=== PATIENT | female | born 1990 | race Two or more races ===

== ENCOUNTER 2017-01-01 19:23 | Inpatient (IN) | payer OTHER ==
[2017-01-01] MEDS ORDERED: DEXTROSE 5%-LACTATED RINGERS 500 ML IV SCH (21:30)
[2017-01-01] MEDS ORDERED: DEXTROSE 5%-LACTATED RINGERS 250 ML IV SCH (22:30)
[2017-01-01] MEDS ORDERED: DEXTROSE 5%-LACTATED RINGERS 1,000 ML IV SCH (23:30)
[2017-01-02 00:26] LABS: BASO % 0.2 % (0-2.0); EOS % 1.8 % (0-4.5); HEMATOCRIT 31.9 % (32.4-45.2); HEMOGLOBIN 10.9 GM/dL (10.7-15.3); LYMPH % 19.4 % (8-40); MCH 30.1 pg (25.7-33.7); MCHC 34.1 g/dl (32.0-36.0); MEAN CELL VOLUME 88.2 fl (80-96); MEAN PLT VOLUME 9.1 fl (7.5-11.1); MONO % 10.5 % (3.8-10.2); NEUT % 68.1 % (42.8-82.8); PLATELET COUNT 161 K/MM3 (134-434); RBC 3.61 M/mm3 (3.60-5.2); RDW 14.4 % (11.6-15.6); WHITE BLOOD COUNT 8.1 K/mm3 (4.0-10.0)
[2017-01-02 00:39] LABS: INR 0.91 (0.82-1.09); PROTHROMBIN TIME (PATIENT) 10.3 SEC (9.98-11.88)
[2017-01-02 00:41] LABS: ACTIVATED PTT 25.4 SECONDS (26.9-34.4)
[2017-01-02 00:48] LABS: ANION GAP 12 (8-16); BLOOD UREA NITROGEN 6 mg/dL (7-18); CALCIUM 8.5 mg/dL (8.5-10.1); CHLORIDE 107 mmol/L (98-107); CO2 22 mmol/L (21-32); CREATININE 0.5 mg/dL (0.55-1.02); GLUCOSE,RANDOM 90 mg/dL (74-106); POTASSIUM 3.6 mmol/L (3.5-5.1); SODIUM 141 mmol/L (136-145)
[2017-01-02 01:23] VITALS: BMI 25.9
[2017-01-02 03:30] LABS: URINE AMPHETAMINES NEGATIVE ng/ml (CUTOFF=500); URINE BARBITURATES NEGATIVE ng/ml (CUTOFF=200); URINE BENZODIAZEPINES NEGATIVE ng/ml (CUTOFF=200)
[2017-01-02 03:31] LABS: METHADONE, UR NEGATIVE ng/ml (CUTOFF=300); OPIATES, URI NEGATIVE ng/ml (CUTOFF=300); PHENCYCLIDINE,URINE NEGATIVE ng/ml (CUTOFF=25)
[2017-01-02 03:45] LABS: COCAINE, UR NEGATIVE ng/ml (CUTOFF=300)
[2017-01-02] MEDS ORDERED: PROMETHAZINE HCL 25 MG/1 ML VIAL IVPUSH ONE (04:03)
[2017-01-02] MEDS ORDERED: BUTORPHANOL TARTRATE 1 MG/ML VIAL IVPB ONE (04:03)
--- NOTE | 2017-01-02 04:07 | HP ---
Past Medical History - Admission Chief Complaint: Here because "it is my due date" History Source: Patient Limitations to Obtaining History: Other (language barrier, no chart available from provider) - Past Medical History Cardiovascular: No: HTN Pulmonary: No: Asthma Reproductive: No: Ectopic ...: 3 ...Para: 2 ...Term: 2 ... Weeks Gestation by Dates: 41.1 ...EDC by Dates: 12/23/16 Psych: No: Bipolar Endocrine: No: Diabetes Mellitus - Past Surgical History Past Surgical History: Yes: None Hx Myomectomy: No Hx Transabdominal Cerclage: No - Smoking History Smoking history: Never smoked - Alcohol/Substance Use Hx Alcohol Use: No - Social History ADL: Independent Home Medications - Allergies Allergies/Adverse Reactions: Allergies Allergy/AdvReac Type Severity Reaction Status Date / Time Penicillins Allergy Mild Hives Verified 01/01/17 20:33 - Home Medications Home Medications: Ambulatory Orders Vit Calc,Iron,Folic [ Vitamins] 1 each PO DAILY 01/01/17 Review of Systems - Review of Systems Constitutional: reports: No Symptoms Eyes: reports: No Symptoms Neck: reports: No Symptoms Cardiovascular: reports: No Symptoms Gastrointestinal: reports: No Symptoms Integumentary: reports: No Symptoms Neurological: reports: No Symptoms Physical Exam - Maternity Vital Signs: Vital Signs Temperature 97.8 F 01/02/17 02:00 Pulse Rate 82 01/02/17 03:00 Respiratory Rate 20 01/02/17 03:00 Blood Pressure 100/65 01/02/17 03:00 O2 Sat by Pulse Oximetry (%) Constitutional: Yes: Well Nourished, No Distress, Calm Eyes: Yes: Conjunctiva Clear, EOM Intact HENT: Yes: Atraumatic, Normocephalic Neck: Yes: Supple Breast(s): Yes: WNL - Abdominal Exam/OB Number of Fetuses: Single Presentation: Vertex Contractions: Yes Regularity: Irregular Heart Rate (range): 135 Category: I Accelerations: Uniform Decelerations: None - Vaginal Exam/OB Dilatation (cm): 6 Effacement (%): 60 Amniotic Membrane Status: Intact Presentation: Vertex/Position Station: -2 - Physical Exam Psychiatric: Yes: Alert, Oriented - Labs Lab Results: CBC, BMP 01/01/17 23:15 01/01/17 23:15 Hemorrhage Risk Assessment - Risk Factors Medium Risk Factors: Yes: None High Risk Factors: Yes: None Risk Score: 1 Risk Level: Medium Risk Imaging - Results Ultrasound: Report Reviewed, Image Reviewed Problem List - Problems (1) Term Code(s): Z34.80 - ENCOUNTER FOR SUPRVSN OF NORMAL , UNSP TRIMESTER Assessment/Plan 26 y/o with SIUP at term (EDC unknown 2/2 no chart available) in labor - FHTS cat 1 - admitted to L&D, continuous monitoring, expectant management - GBS unknown but > 37 weeks, no antibiotic ppx needed - routine care
[2017-01-02] MEDS ORDERED: DEXTROSE 5%-LACTATED RINGERS 1,000 ML IV SCH (04:15)
[2017-01-02] MEDS: OXYTOCIN 20 UNITS in 0.9% NS 20 UNIT/1,000 ML INFUS.BAG IV SCH ×2 (11:10→14:00)
[2017-01-02] MEDS ORDERED: BENZOCAINE 20% 57 GM BOTTLE TP PRN (11:19)
[2017-01-02] MEDS ORDERED: METHYLERGONOVINE MALEATE 0.2 MG/1 ML AMP IM PRN (11:19)
[2017-01-02] MEDS ORDERED: BENZOCAINE 28 GM HEMORRHOIDAL OINTMENT TP PRN (11:19)
[2017-01-02] MEDS ORDERED: WITCH HAZEL 50% (TUCKS) 40 PAD/JAR PAD TP PRN (11:19)
[2017-01-02] MEDS ORDERED: BISACODYL 10 MG SUPP.RECT RC PRN (11:19)
--- NOTE | 2017-01-02 11:23 | PN ---
Delivery - Delivery Vaginal Delivery: Spontaneous Type of Anesthesia: Local Episiotomy/Laceration: 2nd degree EBL (cc): 250 Delivery, Single - Feeding Plan Initial Plan: Elected not to breastfeed exclusively throughout hospitalization Remarks - Remarks Remarks: Normal spontaneous vaginal delivery of a live infant boy over second degree laceration. Nose / Oropharynx suctioned @ perineum. Nuchal cord x 1 released,clamped and cut. Placenta expelled spontaneously intact. Laceration repeaired with 2.0 Chromic and 2.0 Biosyn.
[2017-01-02] MEDS: IBUPROFEN 600 MG TABLET (FP) PO PRN ×2 (12:15→16:01)
[2017-01-02] MEDS ORDERED: TUBERCULIN PPD 5 TU/0.1ML SYRINGE (IN PATIENT USE ONLY) ID ONE (12:15)
[2017-01-02] MEDS: FERROUS SO4 325 MG TABLET (FP) PO SCH ×2 (15:44→17:53)
[2017-01-02] MEDS: ACETAMINOPHEN 325 MG TABLET (FP) PO PRN (16:01)
[2017-01-03] MEDS: ACETAMINOPHEN 325 MG TABLET (FP) PO PRN (05:47)
[2017-01-03] MEDS: IBUPROFEN 600 MG TABLET (FP) PO PRN (05:49)
[2017-01-03 07:02] LABS: BASO % 0.3 % (0-2.0); EOS % 2.1 % (0-4.5); HEMATOCRIT 34.7 % (32.4-45.2); HEMOGLOBIN 11.6 GM/dL (10.7-15.3); LYMPH % 14.8 % (8-40); MCH 29.7 pg (25.7-33.7); MCHC 33.4 g/dl (32.0-36.0); MEAN CELL VOLUME 88.8 fl (80-96); MEAN PLT VOLUME 8.3 fl (7.5-11.1); MONO % 8.2 % (3.8-10.2); NEUT % 74.6 % (42.8-82.8); PLATELET COUNT 140 K/MM3 (134-434); RBC 3.91 M/mm3 (3.60-5.2); RDW 14.7 % (11.6-15.6)
[2017-01-03] MEDS: PRENATAL VITAMINS W/ FOLIC ACID TABLET (FP) PO SCH (09:01)
[2017-01-03] MEDS: FERROUS SO4 325 MG TABLET (FP) PO SCH ×3 (09:01→16:57)
--- NOTE | 2017-01-03 09:18 | PN ---
Post Progress Note - Subjective Subjective: 26 yo Para 3 status post vaginal delivery seen and evaluated. Doing well, no complaints. Post Day: 1 Type of Delivery: Vital Signs: Vital Signs Temperature 98.1 F 01/03/17 07:15 Pulse Rate 58 L 01/03/17 07:15 Respiratory Rate 18 01/03/17 07:15 Blood Pressure 117/80 01/03/17 07:15 O2 Sat by Pulse Oximetry (%) Breast Exam: Yes: Soft Uterus: Yes: Fundus Firm Abdomen/GI: Yes: Abdomen soft, Tolerating PO Lochia: Yes: Rubra Lochia, amount: Moderate Extremities: Yes: Calves non-tender Perineum: Yes: Intact Activity: Ambulating - Labs Labs: CBC WBC 12.0 K/mm3 (4.0-10.0) H D 01/03/17 06:00 RBC 3.91 M/mm3 (3.60-5.2) 01/03/17 06:00 Hgb 11.6 GM/dL (10.7-15.3) 01/03/17 06:00 Hct 34.7 % (32.4-45.2) 01/03/17 06:00 MCV 88.8 fl (80-96) 01/03/17 06:00 MCH 29.7 pg (25.7-33.7) 01/03/17 06:00 MCHC 33.4 g/dl (32.0-36.0) 01/03/17 06:00 RDW 14.7 % (11.6-15.6) 01/03/17 06:00 Plt Count 140 K/MM3 (134-434) 01/03/17 06:00 MPV 8.3 fl (7.5-11.1) 01/03/17 06:00 Neutrophils % 74.6 % (42.8-82.8) 01/03/17 06:00 Lymphocytes % 14.8 % (8-40) D 01/03/17 06:00 Monocytes % 8.2 % (3.8-10.2) 01/03/17 06:00 Eosinophils % 2.1 % (0-4.5) 01/03/17 06:00 Basophils % 0.3 % (0-2.0) 01/03/17 06:00 Assessment/Plan Status post vaginal delivery Stable Continue routine care
--- NOTE | 2017-01-03 09:20 | DS ---
Physical Exam-[employer] Vital Signs: Vital Signs Temperature 98.1 F 01/03/17 07:15 Pulse Rate 58 L 01/03/17 07:15 Respiratory Rate 18 01/03/17 07:15 Blood Pressure 117/80 01/03/17 07:15 O2 Sat by Pulse Oximetry (%) Constitutional: Yes: Well Nourished Eyes: Yes: Conjunctiva Clear HENT: Yes: Atraumatic Neck: Yes: Supple, Trachea Midline Cardiovascular: Yes: Regular Rate and Rhythm Respiratory: Yes: Regular, CTA Bilaterally Gastrointestinal: Yes: Normal Bowel Sounds External Genitalia: Yes: Normal Vaginal Exam: Yes: Normal Cervix: Yes: Normal Uterus: Yes: Firm ....Post : Yes: Uterus firm, Moderate lochia serosa Breast(s): Yes: WNL Extremities: Yes: WNL Neurological: Yes: Alert, Oriented ...Motor Strength: WNL Psychiatric: Yes: Alert, Oriented Labs: CBC, BMP 01/03/17 06:00 01/01/17 23:15 Delivery - Delivery Vaginal Delivery: Spontaneous Type of Anesthesia: Local Episiotomy/Laceration: Perineal Extension/lac, 2nd degree EBL (cc): 250 Delivery, Single - Stages of Labor Date 1st Stage Initiatied: 01/02/17 Time 1st Stage Initiated: 01:00 Date 2nd Stage Initiated: 01/02/17 Time 2nd Stage Initiated: 10:50 Date of Delivery: 01/02/17 Time of Delivery: 11:03 Time Placenta Delivered: 11:07 - Condition of Infant 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 F/U with MD in 6 weeks Referrals: Erika Martinez MD [Staff Physician] - Disposition: HOME - Home Medications Comprehensive Discharge Medication List: Ambulatory Orders Vit Calc,Iron,Folic [ Vitamins] 1 each PO DAILY 01/01/17
[2017-01-03] MEDS ORDERED: SENNOSIDES/DOCUSATE COMBO (SENNA PLUS) TABLET (UD) PO PRN (22:00)
[2017-01-04 09:01] VITALS: BP 114/73; PULSE 67; TEMP 98.8
[2017-01-04] MEDS: PRENATAL VITAMINS W/ FOLIC ACID TABLET (FP) PO SCH (09:10)
[2017-01-04] MEDS: FERROUS SO4 325 MG TABLET (FP) PO SCH ×2 (09:10→12:17)
== END 2017-01-04 12:10 | disposition home or self-care (01) | DRG 560 ==
LOC: JDEL 19:23 → JLDR 22:20 → J3W 01-02 12:34
PROVIDERS: ADMIT Obstetrics & Gynecology; ATTEND Obstetrics & Gynecology
PROC: 10E0XZZ Delivery of Products of Conception, External Approach (ICD-10-PCS; principal; 2017-01-02)
PROC: 0KQM0ZZ Repair Perineum Muscle, Open Approach (ICD-10-PCS; 2017-01-02)
DX: O48.0 Post-term pregnancy (principal); O70.1 Second degree perineal laceration during delivery; O69.81X0 Labor and delivery complicated by cord around neck, without compression, not applicable or unspecified; Z3A.41 41 weeks gestation of pregnancy; Z37.0 Single live birth
CPT/HCPCS: 36415; 59025; 71020-TC; 76801-TC; 76819-TC; 80048; 80307; 85025; 85461; 85610; 85730; 86593; 86850; 86900; 86901; 86999; 87389

== ENCOUNTER 2017-02-01 01:36 | Emergency (ER) | payer OTHER ==
[2017-02-01 01:47] VITALS: BMI 25.9
--- NOTE | 2017-02-01 02:12 | PDOC ---
History of Present Illness - General History Source: Patient Exam Limitations: No Limitations - History of Present Illness Initial Comments: 02/01/17 04:02 Patient is a 26 year old female with a significant past medical history of who presents to the ED with complaints of headache that began 1 month ago. Patient reports experiencing intense headache shortly after giving to her child 1 month ago. She reports taking motrin for headache with slight relief. Patient also reports experiencing intense left lower tooth pain for one week. She reports being unable to chew and open mouth effectively secondary to tooth pain. Denies chest pain, SOB. Denies nausea, vomiting. Denies chills. Denies contact with sick individuals, out of state travel. Denies lightheadedness, dizziness, blurred vision. Allergies: Eggs, Fish, Penicillin. Social history: Vaginal 1 month ago. No smoking. No alcohol. No illicit drugs. Surgical history: None PMD: Dr. Jang. <Stephen Long - Last Filed: 02/01/17 04:01> <Shantal Gore - Last Filed: 02/01/17 22:52> - General Chief Complaint: Headache Stated Complaint: HEADACHE Time Seen by Provider: 02/01/17 02:08 Past History <Stephen Long - Last Filed: 02/01/17 04:01> - Past Medical History Asthma: No Cancer: No Cardiac Disorders: No Diabetes: No HTN: No Seizures: No Thyroid Disease: No - Suicide/Smoking/Psychosocial Hx Smoking History: Never smoked Have you smoked in the past 12 months: No Information on smoking cessation initiated: No Hx Alcohol Use: No Drug/Substance Use Hx: No Hx Substance Use Treatment: No <Shantal Gore - Last Filed: 02/01/17 22:52> - Past Medical History Allergies/Adverse Reactions: Allergies Allergy/AdvReac Type Severity Reaction Status Date / Time egg Allergy Mild Rash Verified 02/01/17 01:45 Fish Containing Products Allergy Mild Rash Verified 02/01/17 01:45 Penicillins Allergy Mild Hives Verified 02/01/17 01:45 Home Medications: Ambulatory Orders NK [No Known Home Medication] 02/01/17 Review of Systems - Review of Systems Able to Perform ROS?: Yes Comments:: 02/01/17 04:02 GENERAL/CONSTITUTIONAL: No fever or chills. No weakness. HEAD, EYES, EARS, NOSE AND THROAT: +Toothache. No change in vision. No ear pain or discharge. No sore throat. CARDIOVASCULAR: No chest pain or shortness of breath. RESPIRATORY: No cough, wheezing, or hemoptysis. GASTROINTESTINAL: No nausea, vomiting, diarrhea or constipation. GENITOURINARY: No dysuria, frequency, or change in urination. MUSCULOSKELETAL: No joint or muscle swelling or pain. No neck or back pain. SKIN: No rash NEUROLOGIC: +Headache No vertigo, loss of consciousness, or change in strength/sensation. ENDOCRINE: No increased thirst. No abnormal weight change. HEMATOLOGIC/LYMPHATIC: No anemia, easy bleeding, or history of blood clots. ALLERGIC/IMMUNOLOGIC: No hives or skin allergy. All Other Systems: Reviewed and Negative <Stephen Long - Last Filed: 02/01/17 04:01> *Physical Exam - Vital Signs Last Vital Signs Temp Pulse Resp BP Pulse Ox 99.1 F 87 20 120/64 100 02/01/17 01:38 02/01/17 01:38 02/01/17 01:38 02/01/17 01:38 02/01/17 01:38 - Physical Exam Comments: 02/01/17 04:02 GENERAL: Awake, alert, and fully oriented, in no acute distress HEAD: No signs of trauma EYES: PERRLA, EOMI, sclera anicteric, conjunctiva clear ENT: Auricles normal inspection, hearing grossly normal, nares patent, oropharynx clear without exudates. Moist mucosa NECK: Normal ROM, supple, no lymphadenopathy, JVD, or masses LUNGS: Breath sounds equal, clear to auscultation bilaterally. No wheezes, and no crackles HEART: Regular rate and rhythm, normal S1 and S2, no murmurs, rubs or gallops ABDOMEN: Soft, nontender, normoactive bowel sounds. No guarding, no rebound. No masses EXTREMITIES: Normal range of motion, no edema. No clubbing or cyanosis. No cords, erythema, or tenderness NEUROLOGICAL: Cranial nerves II through XII grossly intact. Normal speech, normal gait SKIN: Warm, Dry, normal turgor, no rashes or lesions noted. <Stephen Long - Last Filed: 02/01/17 04:01> - Vital Signs Last Vital Signs Temp Pulse Resp BP Pulse Ox 99.1 F 87 20 120/64 100 02/01/17 01:38 02/01/17 01:38 02/01/17 01:38 02/01/17 01:38 02/01/17 01:38 <Shantal Gore - Last Filed: 02/01/17 22:52> Medical Decision Making - Medical Decision Making 02/01/17 06:55 Pt complains of headache and "uterus pain" She has no vag bleed and no discharge. She gave 1 month ago. She has no abd pain and she has no dysuria and no flank pain. She has a MOURA, but no fever and no neuro symptoms. She has no sore throat. HEENT is normal, but reveals a left lower wisdom tooth erupting and causing pain x 1 week. MOURA is likely due to the tooth. However, pt insists that the pain has been since the delivery of her baby. Head CT done; result pending. 02/01/17 06:58 Pt will be signed out to the day team <Shantal Gore - Last Filed: 02/01/17 22:52> *DC/Admit/Observation/Transfer - Attestations Scribe Attestion: 02/01/17 04:02 Documentation prepared by Stephen Long, acting as medical planner for Shantal Gore MD/DO. <Stephen Long - Last Filed: 02/01/17 04:01> <Shantal Gore - Last Filed: 02/01/17 22:52> Diagnosis at time of Disposition: Headache - Discharge Dispostion Disposition: HOME Condition at time of disposition: Stable - Referrals Referrals: Berta Jang MD [Primary Care Provider] - - Patient Instructions Printed Discharge Instructions: DI for Headache Additional Instructions: Follow-up with Dr. Jang within 2-3 days. Return to the emergency department if you have any new, worsening or concerning symptoms. Print Language: [place] - Post Discharge Activity
[2017-02-01] MEDS ORDERED: ACETAMINOPHEN 500 MG TABLET (FP) PO ONE (03:41)
[2017-02-01] MEDS ORDERED: ACETAMINOPHEN 325 MG TABLET (FP) ONE (03:59)
[2017-02-01 04:03] LABS: URINE APPEARANCE CLEAR; URINE BILIRUBIN NEGATIVE (NEGATIVE); URINE BLOOD NEGATIVE (NEGATIVE); URINE COLOR STRAW; URINE GLUCOSE (UA) NEGATIVE (NEGATIVE); URINE KETONE NEGATIVE (NEGATIVE); URINE NITRITE NEGATIVE (NEGATIVE); URINE PROTEIN NEGATIVE (NEGATIVE); URINE UROBILINOGEN NEGATIVE mg/dL (0.2-1.0)
[2017-02-01 04:42] LABS: URINE LEUK ESTERASE 2+ (NEGATIVE)
[2017-02-01 04:47] LABS: URINE BACTERIA RARE /hpf (NONE SEEN); URINE RBC <1 /hpf (0-3); URINE WBC 12 /hpf (3-5)
--- NOTE | 2017-02-01 07:42 | PDOC ---
*Physical Exam - Vital Signs Last Vital Signs Temp Pulse Resp BP Pulse Ox 99.1 F 63 18 109/73 100 02/01/17 01:38 02/01/17 06:50 02/01/17 06:50 02/01/17 06:50 02/01/17 06:50 ED Treatment Course - ADDITIONAL ORDERS Additional order review: Laboratory Results 02/01/17 03:50 Urine Color Straw Urine Appearance Clear Urine pH 7.0 Ur Specific [place] 1.004 Urine Protein Negative Urine Glucose (UA) Negative Urine Ketones Negative Urine Blood Negative Urine Nitrite Negative Urine Bilirubin Negative Urine Urobilinogen Negative Urine WBC (Auto) 12 Urine RBC (Auto) <1 Ur Epithelial Cells Rare Urine Bacteria Rare - Medications Given in the ED: ED Medications Discontinued Medications Generic Name Dose Route Start Last Admin Trade Name Yohannes PRN Reason Stop Dose Admin Acetaminophen 1,000 mg 02/01/17 03:41 02/01/17 04:02 Tylenol - PO 02/01/17 03:42 1,000 mg ONCE ONE Administration Medical Decision Making - Medical Decision Making 02/01/17 07:37 Patient signed out to me by Dr. Gore, pending [facility]. She presents with a gradual onset headache that began 1 month ago. She reports the headache is. And has no association with the time of day. She denies any associated symptoms of focal weakness or numbness or photophobia. Reports some nausea but no vomiting. Denies neck stiffness. Current vitals are wnl, BP 106/76. GENERAL: Awake, alert, and fully oriented, in no acute distress HEAD: No signs of trauma EYES: PERRLA, EOMI, sclera anicteric, conjunctiva clear ENT: Auricles normal inspection, hearing grossly normal, nares patent, oropharynx clear without exudates. Moist mucosa NECK: Normal ROM, supple, no lymphadenopathy, JVD, or masses LUNGS: Breath sounds equal, clear to auscultation bilaterally. No wheezes, and no crackles HEART: Regular rate and rhythm, normal S1 and S2, no murmurs, rubs or gallops ABDOMEN: Soft, nontender, normoactive bowel sounds. No guarding, no rebound. No masses EXTREMITIES: Normal range of motion, no edema. No clubbing or cyanosis. No cords, erythema, or tenderness NEUROLOGICAL: Normal speech, cranial nerves intact, negative pronator drift, 5/ 5 strength in all 4 extremities, normal sensation to light touch in all 4 extremities, normal cerebellar exam, normal gait, normal reflexes and tone SKIN: Warm, Dry, normal turgor, no rashes or lesions noted. Likely a tension headahce or possibly related to her toothache. Pt is neuro intact with no concerning symptoms of pre-eclampsia/eclampsia, sinus will thrombosis, or SAH. Pt reports that currently after treatment, her headache has completely resolved and she wishes to go home. We are awaiting the results of the CT scan that was ordered overnight, I informed the patient and her brother that we are waiting for the results. They expressed understanding. 02/01/17 07:42 CTH negative. Pt informed, requests DC to f/u with PMD. I discussed the physical exam findings, ancillary test results and final diagnoses with the patient. I answered all of the patient's questions. The patient was satisfied with the care received and felt comfortable with the discharge plan and treatment plan. The patient will call their primary care physician within 24 hours to arrange follow-up and will return to the Emergency Department with any new, persistent or worsening symptoms. *DC/Admit/Observation/Transfer Diagnosis at time of Disposition: Headache - Discharge Dispostion Disposition: HOME Condition at time of disposition: Stable Admit: No - Referrals Referrals: Berta Jang MD [Primary Care Provider] - - Patient Instructions Printed Discharge Instructions: DI for Headache Additional Instructions: Follow-up with Dr. Jang within 2-3 days. Return to the emergency department if you have any new, worsening or concerning symptoms. - Post Discharge Activity - Attestations Physician Attestion: 02/01/17 07:44 I, Dr. Scot Morales MD, attest that this document has been prepared under my direction and personally reviewed by me in its entirety. I further attest, that it accurately reflects all work, treatment, procedures and medical decision -making performed by me.
[2017-02-01 07:52] VITALS: BP 119/86; PULSE 84; TEMP 98.2
[2017-02-01 10:56] LABS: URINE LEUK ESTERASE 2+ (NEGATIVE)
== END 2017-02-01 07:53 | disposition home or self-care (01) ==
LOC: JER 01:36
DX: O90.89 Other complications of the puerperium, not elsewhere classified (principal); R51 Headache; K08.89 Other specified disorders of teeth and supporting structures
CPT/HCPCS: 70450-TC; 81003; 81015; 99282-25

== ENCOUNTER 2018-02-12 19:03 | Emergency (ER) | payer OTHER ==
--- NOTE | 2018-02-12 19:22 | PDOC ---
Rapid Medical Evaluation Time Seen by Provider: 02/12/18 19:20 Medical Evaluation: Allergies Allergy/AdvReac Type Severity Reaction Status Date / Time egg Allergy Mild Rash Verified 02/01/17 01:45 Fish Containing Products Allergy Mild Rash Verified 02/01/17 01:45 Penicillins Allergy Mild Hives Verified 02/01/17 01:45 02/12/18 19:20 c/o fever and cough started Thursday. used otc meds no relief. no foreign travel. no sick contacts. no pmhx Discharge Disposition - Referrals Referrals: Berta Jang MD [Primary Care Provider] - - Patient Instructions - Post Discharge Activity
[2018-02-12 19:25] VITALS: BP 124/72; PULSE 93; TEMP 98.5; BMI 22.6
--- NOTE | 2018-02-12 19:40 | PDOC ---
History of Present Illness - General Chief Complaint: Cold Symptoms Stated Complaint: FEVER BODY PAIN Time Seen by Provider: 02/12/18 19:20 History Source: Patient Exam Limitations: No Limitations - History of Present Illness Initial Comments: 02/12/18 19:42 27 year old female with body aches, sore throat and cough for the past 2-3 days. Patient took no medication decided come to the ER. Patient denies recent illness recent travel or recent sick contacts. Patient denies medical history. Severity: reports: mild Possible Cause: Yes: no prior episodes Modifying Factors: improves with: coughing Associated Symptoms: reports: cough, fever/chills Past History - Travel Traveled outside of the country in the last 30 days: No Close contact w/someone who was outside of country & ill: No - Past Medical History Allergies/Adverse Reactions: Allergies Allergy/AdvReac Type Severity Reaction Status Date / Time egg Allergy Mild Rash Verified 02/01/17 01:45 Fish Containing Products Allergy Mild Rash Verified 02/01/17 01:45 Penicillins Allergy Mild Hives Verified 02/01/17 01:45 Home Medications: Ambulatory Orders NK [No Known Home Medication] 02/12/18 Asthma: No Cancer: No Cardiac Disorders: No COPD: No Diabetes: No HTN: No Seizures: No Thyroid Disease: No - Reproductive History (#): 1 Para: 1 - Suicide/Smoking/Psychosocial Hx Smoking History: Never smoked Have you smoked in the past 12 months: No Hx Alcohol Use: No Drug/Substance Use Hx: No Substance Use Type: None Hx Substance Use Treatment: No Patient Lives Alone: No Lives with/in: spouse/SO Review of Systems - Review of Systems Able to Perform ROS?: No Constitutional: Yes: Chills HEENTM: Yes: Throat Pain Respiratory: Yes: Cough ABD/GI: No: Symptoms Reported : No: Symptoms Reported Musculoskeletal: Yes: Joint Pain (generalized) Integumentary: No: Symptoms Reported Neurological: No: Symptoms reported *Physical Exam - Vital Signs Last Vital Signs Temp Pulse Resp BP Pulse Ox 98.5 F 93 H 19 124/72 100 02/12/18 19:23 02/12/18 19:23 02/12/18 19:23 02/12/18 19:23 02/12/18 19:23 - Physical Exam General Appearance: Yes: Nourished, Appropriately Dressed. No: Apparent Distress HEENT: positive: EOMI, ROD, TMs Normal, Pharynx Normal. negative: Pale Conjunctivae Neck: positive: Supple Respiratory/Chest: positive: Lungs Clear, Normal Breath Sounds. negative: Respiratory Distress, Accessory Muscle Use Cardiovascular: positive: Regular Rhythm, Regular Rate. negative: Murmur Gastrointestinal/Abdominal: positive: Soft. negative: Tenderness Extremity: positive: Normal Capillary Refill Integumentary: positive: Normal Color, Warm, Moist Neurologic: positive: Motor Strength 5/5 (ambulatory) Moderate Sedation - Procedure Monitoring Vital Signs: Procedure Monitoring Vital Signs Temperature 98.5 F 02/12/18 19:23 Pulse Rate 93 H 02/12/18 19:23 Respiratory Rate 19 02/12/18 19:23 Blood Pressure 124/72 02/12/18 19:23 O2 Sat by Pulse Oximetry (%) 100 02/12/18 19:23 Medical Decision Making - Medical Decision Making 02/12/18 19:32 CC: fever, body aches, cough Exam: mild erythema to post pharynx Plan: rapid strep and influenza 02/12/18 19:57 Laboratory Tests 02/12/18 19:00 Group A Strep Rapid Negative 02/12/18 20:11 Laboratory Tests 02/12/18 19:40 Influenza A (Rapid) Positive Influenza B (Rapid) Negative *DC/Admit/Observation/Transfer Diagnosis at time of Disposition: Influenza A - Discharge Dispostion Disposition: HOME Condition at time of disposition: Good - Referrals Referrals: Berta Jang MD [Primary Care Provider] - - Patient Instructions Printed Discharge Instructions: DI for Influenza -- Adult Additional Instructions: Drink plenty of fluids Take motrin 600mg every 8 hrs. Wash hands frequently - Post Discharge Activity Forms/Work/School Notes: Back to Work
[2018-02-12] MEDS ORDERED: IBUPROFEN 600 MG TABLET (FP) PO ONE ×2 (20:15→20:16)
== END 2018-02-12 20:21 | disposition home or self-care (01) ==
LOC: JER 19:03 → JERFT 19:03
DX: J09.X2 Influenza due to identified novel influenza A virus with other respiratory manifestations (principal); Z88.0 Allergy status to penicillin; Z91.013 Allergy to seafood; Z91.012 Allergy to eggs
CPT/HCPCS: 87070; 87804; 87880; 99281-25

== ENCOUNTER 2018-06-09 17:29 | Emergency (ER) | payer OTHER ==
--- NOTE | 2018-06-09 17:33 | PDOC ---
Rapid Medical Evaluation Time Seen by Provider: 06/09/18 17:30 Medical Evaluation: Allergies Allergy/AdvReac Type Severity Reaction Status Date / Time egg Allergy Mild Rash Verified 02/01/17 01:45 Fish Containing Products Allergy Mild Rash Verified 02/01/17 01:45 Penicillins Allergy Mild Hives Verified 02/01/17 01:45 06/09/18 17:30 I have performed a brief in-person evaluation of this patient. The patient presents with a chief complaint of: right hand swelling Pertinent physical exam findings: right hand cold to touch. 2+ radial pulse. FAROM. I have ordered the following: u/s RUE The patient will proceed to the ED for further evaluation. Discharge Disposition - Diagnosis Hand swelling - Referrals - Patient Instructions - Post Discharge Activity
[2018-06-09 17:34] VITALS: BP 134/78; PULSE 108; TEMP 99.1; BMI 23.9
--- NOTE | 2018-06-09 18:27 | PDOC ---
History of Present Illness - General Chief Complaint: Pain Stated Complaint: SWOLLEN HAND Time Seen by Provider: 06/09/18 17:30 - History of Present Illness Initial Comments: 06/09/18 18:22 27-year-old female without comorbidities no home medications she denies taking home medication or prescription medication presents for evaluation of right arm and right-sided neck pain times one week no trauma Past History - Past Medical History Allergies/Adverse Reactions: Allergies Allergy/AdvReac Type Severity Reaction Status Date / Time egg Allergy Mild Rash Verified 06/09/18 17:34 Fish Containing Products Allergy Mild Rash Verified 06/09/18 17:34 Penicillins Allergy Mild Hives Verified 06/09/18 17:34 Home Medications: Ambulatory Orders Cetirizine HCl [Zyrtec -] 10 mg PO DAILY 06/09/18 Cyclobenzaprine HCl [Flexeril 10 mg] 10 mg PO HS PRN #10 tablet 06/09/18 Ibuprofen [Motrin -] 600 mg PO TID #30 tablet 06/09/18 Asthma: No Cancer: No Cardiac Disorders: No COPD: No Diabetes: No HTN: No Seizures: No Thyroid Disease: No - Reproductive History (#): 1 Para: 1 - Suicide/Smoking/Psychosocial Hx Smoking History: Never smoked Have you smoked in the past 12 months: No Information on smoking cessation initiated: No Hx Alcohol Use: No Drug/Substance Use Hx: No Substance Use Type: None Hx Substance Use Treatment: No Review of Systems - Review of Systems Musculoskeletal: Yes: Neck Pain *Physical Exam - Vital Signs Last Vital Signs Temp Pulse Resp BP Pulse Ox 99.1 F 108 H 18 134/78 99 06/09/18 17:32 06/09/18 17:32 06/09/18 17:32 06/09/18 17:32 06/09/18 17:32 - Physical Exam Comments: 06/09/18 18:22 Cervical spine range of motion is full with discomfort at terminal ranges of rotation and flexion and extension, no midline tenderness moderate right-sided para cervical musculature spasm and tenderness majority of the tenderness is about the right side of the levator scapula. 5 out of 5 strength in bilateral upper extremities without gross sensorimotor deficits positive Spurling maneuver on the right negative on the left she is neurovascularly intact free of any gross sensorimotor deficits. Medical Decision Making - Medical Decision Making 06/09/18 18:25 On further questioning patient is on oral contraception, I will give her Flexeril and Motrin have her follow-up with orthopedic spine surgery. I will forego the Medrol Dosepak. *DC/Admit/Observation/Transfer Diagnosis at time of Disposition: Cervical radiculopathy Diagnosis at time of Disposition: (Ruled Out): Hand swelling - Discharge Dispostion Disposition: HOME Condition at time of disposition: Stable Decision to Admit order: No - Referrals Referrals: Onel Gonzalez MD [Staff Physician] - - Patient Instructions Printed Discharge Instructions: DI for Cervical Radiculopathy Additional Instructions: Please take the Motrin and Flexeril as directed. Return to the emergency room for worsening symptoms and follow-up with orthopedic spine surgery in 1-2 days for further evaluation and treatment options. He may also take Tylenol as directed for supplemental pain medication. - Post Discharge Activity
== END 2018-06-09 18:43 | disposition home or self-care (01) ==
LOC: JERFT 17:29
DX: M54.12 Radiculopathy, cervical region (principal)
CPT/HCPCS: 93971; 99281-25

== ENCOUNTER 2018-07-03 14:28 | Emergency (ER) | payer OTHER ==
[2018-07-03 14:40] VITALS: BP 112/80; PULSE 80; TEMP 97.6; BMI 21.2
--- NOTE | 2018-07-03 15:45 | PDOC ---
History of Present Illness - General Chief Complaint: Vaginal Sxs Stated Complaint: VAGINAL RASH/ INFECTION Time Seen by Provider: 07/03/18 14:53 Past History - Past Medical History Allergies/Adverse Reactions: Allergies Allergy/AdvReac Type Severity Reaction Status Date / Time egg Allergy Mild Rash Verified 06/09/18 17:34 Fish Containing Products Allergy Mild Rash Verified 06/09/18 17:34 Penicillins Allergy Mild Hives Verified 06/09/18 17:34 Home Medications: Ambulatory Orders Cetirizine HCl [Zyrtec -] 10 mg PO DAILY 06/09/18 Cyclobenzaprine HCl [Flexeril 10 mg] 10 mg PO HS PRN #10 tablet 06/09/18 Ibuprofen [Motrin -] 600 mg PO TID #30 tablet 06/09/18 Nitrofurantoin Monohyd/M-Cryst [Macrobid -] 100 mg PO BID #14 capsule 07/03/18 metroNIDAZOLE [Flagyl -] 500 mg PO BID #14 tablet 07/03/18 Asthma: No Cancer: No Cardiac Disorders: No COPD: No Diabetes: No HTN: No Seizures: No Thyroid Disease: No - Reproductive History (#): 1 Para: 1 - Immunization History Immunization Up to Date: No - Suicide/Smoking/Psychosocial Hx Smoking History: Never smoked Have you smoked in the past 12 months: No Information on smoking cessation initiated: No Hx Alcohol Use: No Drug/Substance Use Hx: No Substance Use Type: None Hx Substance Use Treatment: No *Physical Exam - Vital Signs Last Vital Signs Temp Pulse Resp BP Pulse Ox 97.6 F 80 18 112/80 100 07/03/18 14:36 07/03/18 14:36 07/03/18 14:36 07/03/18 14:36 07/03/18 14:36 *DC/Admit/Observation/Transfer Diagnosis at time of Disposition: UTI (urinary tract infection) Qualifiers: Urinary tract infection type: acute cystitis Hematuria presence: with hematuria Qualified Code(s): N30.01 - Acute cystitis with hematuria Vaginitis Qualifiers: Chronicity: acute Qualified Code(s): N76.0 - Acute vaginitis - Discharge Dispostion Disposition: HOME Condition at time of disposition: Stable Decision to Admit order: No - Prescriptions Prescriptions: metroNIDAZOLE [Flagyl -] 500 mg PO BID #14 tablet Nitrofurantoin Monohyd/M-Cryst [Macrobid -] 100 mg PO BID #14 capsule - Referrals Referrals: Berta Jang MD [Primary Care Provider] - Izzy Medina MD [Staff Physician] - - Patient Instructions Printed Discharge Instructions: DI for Vaginal Itching, DI for Bacterial Vaginosis Additional Instructions: You were evaluated for your vaginal pain and urinary pain You have a urinary tract infection. This caused by bacteria. Please drink plenty of fluids. Take your antibiotics as prescribed. Finish the entire dose even if you feel better. You may take Tylenol or Motrin as needed for pain You also have a vaginal infection Take the Flagyl twice a day for 1 week. Please follow up with your primary care doctor this week. Return to the emergency department if you have fevers, chills, nausea, vomiting , back pain, or have any changes in your symptoms. - Post Discharge Activity
[2018-07-03 15:54] LABS: EPI CELLS 4.2 /HPF (0-5/HPF); HCG,QUALITATIVE URINE Negative; URINE APPEARANCE CLEAR; URINE BACTERIA 5.2 /hpf (NEGATIVE); URINE BILIRUBIN NEGATIVE (NEGATIVE); URINE CASTS 29 /lpf (0-8); URINE COLOR YELLOW; URINE GLUCOSE (UA) NEGATIVE (NEGATIVE); URINE KETONE NEGATIVE (NEGATIVE); URINE LEUK ESTERASE 2+ (NEGATIVE); URINE NITRITE NEGATIVE (NEGATIVE); URINE PROTEIN NEGATIVE (NEGATIVE); URINE RBC 7 /hpf (0-4); URINE UROBILINOGEN 0.2 mg/dL (0.2-1.0); URINE WBC 76 /hpf (0-5)
== END 2018-07-03 17:10 | disposition home or self-care (01) ==
LOC: JERFT 14:28
DX: N30.01 Acute cystitis with hematuria (principal); N76.0 Acute vaginitis; B96.89 Other specified bacterial agents as the cause of diseases classified elsewhere
CPT/HCPCS: 36415; 81003; 84703; 87070; 87086; 87186; 87205; 87491; 87591; 99281-25

== ENCOUNTER 2019-03-01 00:26 | Emergency (ER) | payer OTHER ==
[2019-03-01 02:44] VITALS: BP 136/74; PULSE 82; TEMP 99; BMI 19.6
--- NOTE | 2019-03-01 03:02 | PDOC ---
Attending Attestation - Resident Resident Name: Anisa Renae - ED Attending Attestation I have performed the following: I have examined & evaluated the patient, The case was reviewed & discussed with the resident, I agree w/resident's findings & plan - HPI HPI: 03/01/19 23:27 see resident hpi - Physicial Exam PE: 03/01/19 23:27 agree with resident exam - Medical Decision Making 03/01/19 23:28 28-year-old female complaining of dysuria Urinalysis within normal limits Patient advised to undergo pelvic exam which she refused She is also refusing antibiotics Urged to follow-up with her regular physician or to return should she reconsider She was nontoxic-appearing Translation was available at the bedside
[2019-03-01] MEDS ORDERED: MAG HYDROX/AL HYDROX/SIMETH -MYLANTA- ORAL SUSPENSION PO ONE (04:42)
[2019-03-01] MEDS ORDERED: FAMOTIDINE 20 MG TABLET PO ONE (04:42)
--- NOTE | 2019-03-01 04:49 | PDOC ---
History of Present Illness - General Chief Complaint: Pain Stated Complaint: PAIN ON THE L SIDE Time Seen by Provider: 03/01/19 03:02 - History of Present Illness Initial Comments: Bereket Valente is a 28yo woman with no known medical problems who presents with two weeks of dysuria, urinary frequency and now with hematuria today. She additionally reports nausea with associated upper abdominal discomfort over the same time period. Finally, she states that she has felt numbness over her left body that occurs when she is upset or angry; this most recently occurred yesterday. She was concerned about these symptoms as she has felt they were occurring more recently over the past few weeks, but she and her note that their son has been acting out lately and has been making them upset. Ms Valente denies any fevers/chills, headache, confusion, neck pain, focal weakness, changes in speech, vomiting, diarrhea, vaginal discharge, or other recent symptoms. Past History - Past Medical History Allergies/Adverse Reactions: Allergies Allergy/AdvReac Type Severity Reaction Status Date / Time egg Allergy Mild Rash Verified 03/01/19 02:44 Fish Containing Products Allergy Mild Rash Verified 03/01/19 02:44 Penicillins Allergy Mild Hives Verified 03/01/19 02:44 Home Medications: Ambulatory Orders Cetirizine HCl [Zyrtec -] 10 mg PO DAILY 06/09/18 Cyclobenzaprine HCl [Flexeril 10 mg] 10 mg PO HS PRN #10 tablet 06/09/18 Ibuprofen [Motrin -] 600 mg PO TID #30 tablet 06/09/18 Nitrofurantoin Monohyd/M-Cryst [Macrobid -] 100 mg PO BID #14 capsule 07/03/18 metroNIDAZOLE [Flagyl -] 500 mg PO BID #14 tablet 07/03/18 Asthma: No Cancer: No Cardiac Disorders: No COPD: No Diabetes: No HTN: No Seizures: No Thyroid Disease: No - Reproductive History (#): 1 Para: 1 - Immunization History Immunization Up to Date: No - Psycho Social/Smoking Cessation Hx Smoking History: Never smoked Have you smoked in the past 12 months: No Hx Alcohol Use: No Drug/Substance Use Hx: No Substance Use Type: None Hx Substance Use Treatment: No Review of Systems - Review of Systems Comments:: General: No fevers, no chills, no weight or appetite change, no malaise HEENT: No changes in vision, no changes in hearing, no congestion, no sore throat CV: No chest pain, no palpitations, no LE edema Pulm: No SOB, no cough, no wheezing GI: No nausea or vomiting, no change in bowel habits, no melena : See HPI Musc: No back pain, no joint swelling, no recent injury Skin: No rash, no lesions, no erythema Endo: No excessive thirst, no heat/cold intolerance Heme: No unusual bruising or bleeding, no swollen glands Neuro: No syncope, no numbness/tingling, no focal weakness Vasc: No claudication Psych: No recent change in mood, no SI or HI *Physical Exam - Vital Signs Last Vital Signs Temp Pulse Resp BP Pulse Ox 99 F 82 17 136/74 100 03/01/19 00:30 03/01/19 00:30 03/01/19 00:30 03/01/19 00:30 03/01/19 00:30 - Physical Exam General: Comfortable, no acute distress HEENT: PERRL, EOMI, MMM, voice normal, normal neck ROM Cards: RRR, no murmur appreciated Pulm: Comfortable on room air, clear to auscultation bilaterally Abd: Soft, nontender, nondistended : No CVA tenderness Ext: Atraumatic. No LE edema. ROM intact. Moves all extremities Skin: Normal color, no rashes or lesions Neuro: A&Ox3, CN grossly intact, normal speech. Strength equal bilaterally. Normal sensation. No focal deficits Psych: Mood appropriate to situation Medical Decision Making - Medical Decision Making 03/01/19 04:43 Bereket Valente is a 28yo woman with no known medical problems who presents with two weeks of dysuria, urinary frequency and now with hematuria today. She additionally endorses being frequently upset and stressed, nausea w/ heartburn, and nonspecific numbness that occur when she is angry/upset. - Worsening urinary symptoms, suggest UTI. Denies any vaginal symptoms but declining exam at this time - UA, UCx - Nausea, heartburn suggest acid refulx. Will give pepcid, maalox in the ED - Numbness that occurs when upset most likely secondary to anxiety. Discussed with pt and family, who agree this is likely. Will follow up with PMD 03/01/19 05:45 - UA w/o UTI - Culture pending - Discussed with patient. Recommending a pelvic exam, but pt continues to decline. Would prefer to wait for final culture results before taking antibiotics. Feels improved following pepcid, will send prescription for home. - Strongly advised to follow up with her PMD in the next week. Discussed with Dr Bernadine Renae PGY2 Discharge - Discharge Information Problems reviewed: Yes Clinical Impression/Diagnosis: Suprapubic discomfort, Heartburn, Anxiety Condition: Stable Disposition: HOME - Admission No - Follow up/Referral Referrals: Berta Jang MD [Staff Physician] - - Patient Discharge Instructions Patient Printed Discharge Instructions: DI for Anxiety -- Adult Additional Instructions: Discharge Instructions: You were seen in the emergency department for abdominal pain. Your symptoms may be partially caused by stress and anxiety. Home Care: - If you are feeling upset, stressed, or anxious, try to sit down and relax - If you are hyperventilating, try to breath slowly and as normally as possible. - You have been prescribed a medication called Pepcid. This should be taken once per day for stomach irritation and acid. Follow up with your regular doctor for additional prescriptions if the medication is helpful. You may also use Maalox or Mylanta for continued symptoms - Take 650-1000mg acetaminophen (Tylenol) or 400mg ibuprofen (Motrin or Advil) every 6-8 hours as needed for pain. Take ibuprofen with food. - Follow up with your regular doctor within the next week - Seek immediate care for worsening symptoms, one-sided weakness, confusion, excessive sleepiness, difficulty speaking, or any other medical emergency. - Post Discharge Activity
[2019-03-01] MEDS ORDERED: FAMOTIDINE 20 MG TABLET ONE (05:00)
[2019-03-01 05:29] LABS: PH,URINE 7.5 (5.0-8.0); URINE APPEARANCE CLEAR; URINE BILIRUBIN NEGATIVE (NEGATIVE); URINE COLOR YELLOW; URINE GLUCOSE (UA) NEGATIVE (NEGATIVE); URINE KETONE NEGATIVE (NEGATIVE); URINE LEUK ESTERASE NEGATIVE (NEGATIVE); URINE NITRITE NEGATIVE (NEGATIVE); URINE PROTEIN NEGATIVE (NEGATIVE)
== END 2019-03-01 06:02 | disposition home or self-care (01) ==
LOC: JER 00:26
DX: R10.30 Lower abdominal pain, unspecified (principal); R12 Heartburn; F41.9 Anxiety disorder, unspecified; Z91.013 Allergy to seafood; Z91.012 Allergy to eggs; Z88.0 Allergy status to penicillin
CPT/HCPCS: 81003; 84703; 87086; 99282-25

== ENCOUNTER 2019-03-23 21:05 | Emergency (ER) | payer OTHER ==
--- NOTE | 2019-03-23 21:31 | PDOC ---
Rapid Medical Evaluation Time Seen by Provider: 03/23/19 21:25 Medical Evaluation: Allergies Allergy/AdvReac Type Severity Reaction Status Date / Time egg Allergy Mild Rash Verified 03/01/19 02:44 Fish Containing Products Allergy Mild Rash Verified 03/01/19 02:44 Penicillins Allergy Mild Hives Verified 03/01/19 02:44 03/23/19 21:25 Pt presents for evaluation of a head injury from one month ago. Pt states she was cleaning the kitchen when she slipped and hit her head on the floor. Denies LOC. No blood thinners. She states she has been dizzy with headache and neck pain since then. Pt speaks latvian. Exam: neurologically intact with no focal deficits Orders: head CT, labs, urine Pt to proceed to the ER for further evaluation Discharge Disposition - Diagnosis Headache Qualifiers: Headache type: unspecified Headache chronicity pattern: acute headache Intractability: not intractable Qualified Code(s): R51 - Headache - Referrals - Patient Instructions - Post Discharge Activity
[2019-03-23] MEDS ORDERED: METOCLOPRAMIDE HCL INJECTION 10 MG/2 ML VIAL IVPB ONE (21:32)
[2019-03-23] MEDS ORDERED: ACETAMINOPHEN 1000 MG/100 ML VIAL (NON FORMULARY) IVPB ONE (21:32)
[2019-03-23 21:40] VITALS: BP 129/71; PULSE 82; TEMP 98.1; BMI 21.8
--- NOTE | 2019-03-23 23:43 | PDOC ---
*Physical Exam - Vital Signs Last Vital Signs Temp Pulse Resp BP Pulse Ox 98.1 F 82 17 129/71 100 03/23/19 21:26 03/23/19 21:26 03/23/19 21:26 03/23/19 21:26 03/23/19 21:26 Medical Decision Making - Medical Decision Making 03/23/19 23:43 Patient seen by the advanced practice provider under my direct supervision. Ancillary testing reviewed as necessary. I agree with plan as outlined by the advanced practice provider. Discharge - Discharge Information Problems reviewed: Yes Clinical Impression/Diagnosis: Headache Qualifiers: Headache type: post-traumatic Headache chronicity pattern: acute headache Intractability: not intractable Qualified Code(s): G44.319 - Acute post- traumatic headache, not intractable Condition: Stable Disposition: HOME - Follow up/Referral Referrals: Berta Jang MD [Primary Care Provider] - - Patient Discharge Instructions Additional Instructions: Avoid electronic devices including computers, tablets, phones and television. Avoid reading. Follow-up with your doctor within the next week for reevaluation. Your symptoms may last for 2 more weeks. This is normal. If you sustain another head injury the time period would restart. Return to the emergency department for any new or worsening symptoms. - Post Discharge Activity
[2019-03-24] MEDS ORDERED: ACETAMINOPHEN 500 MG TABLET (FP) PO ONE (00:15)
--- NOTE | 2019-03-24 00:29 | PDOC ---
History of Present Illness - General Chief Complaint: Injury Stated Complaint: FALL HEAD INJURY Time Seen by Provider: 03/23/19 21:25 History Source: Patient - History of Present Illness Initial Comments: 03/24/19 00:15 HISTORY OF PRESENT ILLNESS: 28-year-old woman presents emergency department for evaluation of continued headache for 1 month status post slip and fall. Patient reports when she fell 1 month ago she struck her head but did not have loss of consciousness. Patient has not vomited since initial injury. Patient reports her pain is 6/10 throughout the day but pain increases to 8/10 when she lays down and puts pressure on the left side of her head. Patient reports she struck the left side of her head and the pain is where the trauma occurred. She is unable to describe the pain but reports having intermittent dizziness. She denies any blurry vision. No recent travel or sick contacts. PAST MEDICAL HISTORY: Denies past medical history SURGICAL HISTORY: Denies ALLERGIES: Penicillin, eggs, fish REVIEW OF SYSTEMS General/Constitutional: Denies fever or chills. Denies weakness, weight change. HEENT: Denies change in vision. Denies ear pain or discharge. Denies sore throat. Cardiovascular: Denies chest pain or shortness of breath. Respiratory: Denies cough, wheezing, or hemoptysis. Gastrointestinal: Denies nausea, vomiting, diarrhea or constipation. Denies rectal bleeding. Genitourinary: Denies dysuria, frequency, or change in urination. Musculoskeletal: Denies joint or muscle swelling or pain. Denies neck or back pain. Skin and breasts: Denies rash or easy bruising. Neurologic: See HPI Psychiatric: Denies depression or anxiety. Endocrine: Denies increased thirst. Denies abnormal weight change. Hematologic/Lymphatic: Denies anemia, easy bleeding, or history of blood clots. Allergic/Immunologic: Denies hives or skin allergy. Denies latex allergy. PHYSICAL EXAM General Appearance: Well-appearing, appropriately dressed. No apparent distress , no intoxication. HEENT: EOMI, PERRLA, normal ENT inspection, normal voice, TMs normal, pharynx normal. No conjunctival pallor. No photophobia, scleral icterus. Normocephalic. atraumatic. Neck: Supple. Trachea midline. No tenderness, rigidity, carotid bruit, stridor , lymphadenopathy, or thyromegaly. Full active range of motion of the cervical spine noted. Respiratory/Chest: Lungs CTAB. No shortness of breath, chest tenderness, respiratory distress, accessory muscle use. No crackles, rales, rhonchi, stridor , wheezing, dullness Cardiovascular: RRR. S1, S2. No JVD, murmur, bradycardia, tachycardia. 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 Fully oriented, alert. Appropriate mood/affect. Motor strength 5/5. No appreciable EOM palsy, facial droop or sensory deficit. Gait is steady. Able to perform rapid alternating movements without difficulty. 03/24/19 00:29 Past History - Past Medical History Allergies/Adverse Reactions: Allergies Allergy/AdvReac Type Severity Reaction Status Date / Time egg Allergy Mild Rash Verified 03/01/19 02:44 Fish Containing Products Allergy Mild Rash Verified 03/01/19 02:44 Penicillins Allergy Mild Hives Verified 03/01/19 02:44 Home Medications: Ambulatory Orders Cetirizine HCl [Zyrtec -] 10 mg PO DAILY 06/09/18 Cyclobenzaprine HCl [Flexeril 10 mg] 10 mg PO HS PRN #10 tablet 06/09/18 Ibuprofen [Motrin -] 600 mg PO TID #30 tablet 06/09/18 Nitrofurantoin Monohyd/M-Cryst [Macrobid -] 100 mg PO BID #14 capsule 07/03/18 metroNIDAZOLE [Flagyl -] 500 mg PO BID #14 tablet 07/03/18 Asthma: No Cancer: No Cardiac Disorders: No COPD: No Diabetes: No HTN: No Seizures: No Thyroid Disease: No - Reproductive History (#): 1 Para: 1 - Immunization History Immunization Up to Date: No - Psycho Social/Smoking Cessation Hx Smoking History: Never smoked Have you smoked in the past 12 months: No Information on smoking cessation initiated: No Hx Alcohol Use: No Drug/Substance Use Hx: No Substance Use Type: None Hx Substance Use Treatment: No *Physical Exam - Vital Signs Last Vital Signs Temp Pulse Resp BP Pulse Ox 98.1 F 82 17 129/71 100 03/23/19 21:26 03/23/19 21:26 03/23/19 21:26 03/23/19 21:26 03/23/19 21:26 Medical Decision Making - Medical Decision Making 03/24/19 00:29 A/P: 28-year-old woman with posttraumatic headache lasted for 1 month CAT scan as read by imaging on-call: No intracranial hemorrhage. No mass- effect. No acute process is seen. Tylenol 1 g orally now Discharge home Discharge - Discharge Information Problems reviewed: Yes Clinical Impression/Diagnosis: Headache Qualifiers: Headache type: post-traumatic Headache chronicity pattern: acute headache Intractability: not intractable Qualified Code(s): G44.319 - Acute post- traumatic headache, not intractable Condition: Stable Disposition: HOME - Admission No - Follow up/Referral Referrals: Berta Jang MD [Primary Care Provider] - - Patient Discharge Instructions Additional Instructions: Avoid electronic devices including computers, tablets, phones and television. Avoid reading. Follow-up with your doctor within the next week for reevaluation. Your symptoms may last for 2 more weeks. This is normal. If you sustain another head injury the time period would restart. Return to the emergency department for any new or worsening symptoms. - Post Discharge Activity
[2019-03-24] MEDS ORDERED: ACETAMINOPHEN 500 MG TABLET (FP) ONE (00:33)
== END 2019-03-24 00:40 | disposition home or self-care (01) ==
LOC: JER 21:05
DX: G44.319 Acute post-traumatic headache, not intractable (principal); Z91.012 Allergy to eggs; Z91.018 Allergy to other foods; Z88.0 Allergy status to penicillin
CPT/HCPCS: 70450-TC; 99282-25

== ENCOUNTER 2020-01-20 00:26 | Emergency (ER) | payer OTHER ==
[2020-01-20 01:35] VITALS: BP 112/69; PULSE 72; TEMP 98.5; BMI 21.7
[2020-01-20] MEDS ORDERED: ACETAMINOPHEN 325 MG TABLET (FP) PO ONE (02:51)
[2020-01-20] MEDS ORDERED: ACETAMINOPHEN 325 MG TABLET (FP) ONE (02:53)
[2020-01-20 03:36] LABS: BASO % 0.4 % (0-2.0); HEMATOCRIT 37.3 % (32.4-45.2); HEMOGLOBIN 12.8 GM/dL (10.7-15.3); LYMPH % 35.2 % (8-40); MCH 29.6 pg (25.7-33.7); MCHC 34.4 g/dl (32.0-36.0); MEAN PLT VOLUME 8.9 fl (7.5-11.1); MONO % 10.6 % (3.8-10.2); NEUT % 39.8 % (42.8-82.8); PLATELET COUNT 213 K/MM3 (134-434); RBC 4.34 M/mm3 (3.60-5.2); RDW 12.6 % (11.6-15.6); WHITE BLOOD COUNT 5.4 K/mm3 (4.0-10.0)
[2020-01-20 03:42] LABS: HCG,QUALITATIVE URINE Negative
[2020-01-20 03:43] LABS: EPI CELLS >36 /uL (0-25.1); HYALINE CASTS 6 /uL (0-3.1); URINE APPEARANCE CLOUDY; URINE BACTERIA 154 /uL (0-1359); URINE BILIRUBIN NEGATIVE (NEGATIVE); URINE COLOR YELLOW; URINE GLUCOSE (UA) NEGATIVE (NEGATIVE); URINE KETONE TRACE (NEGATIVE); URINE LEUK ESTERASE 1+ (NEGATIVE); URINE NITRITE NEGATIVE (NEGATIVE); URINE PROTEIN NEGATIVE (NEGATIVE); URINE RBC 366 /uL (0-23.9); URINE WBC 38 /uL (0-25.8)
[2020-01-20 03:54] LABS: CALCIUM 8.8 mg/dL (8.5-10.1)
[2020-01-20 03:55] LABS: ALBUMIN 4.1 g/dl (3.4-5.0); BLOOD UREA NITROGEN 10.5 mg/dL (7-18)
[2020-01-20 03:58] LABS: CREATININE 0.6 mg/dL (0.55-1.3)
[2020-01-20 03:59] LABS: BILIRUBIN,TOTAL 0.4 mg/dL (0.2-1); TOT PROT 7.3 g/dl (6.4-8.2)
[2020-01-20] MEDS ORDERED: SULFAMETHOXAZOLE/TRIMETHOPRIM 800MG/160MG D.S. TABLET PO ONE (05:10)
[2020-01-20] MEDS ORDERED: SULFAMETHOXAZOLE/TRIMETHOPRIM 800MG/160MG D.S. TABLET ONE (05:14)
== END 2020-01-20 05:18 | disposition home or self-care (01) ==
LOC: JER 00:26
DX: R07.0 Pain in throat (principal); R30.0 Dysuria; N30.01 Acute cystitis with hematuria
CPT/HCPCS: 36415; 71046-TC-FY; 80053; 81003; 84703; 85025; 87077; 87086; 87186; 99284-25

== ENCOUNTER 2020-05-09 23:40 | Emergency (ER) | payer OTHER ==
[2020-05-10 00:11] VITALS: BP 136/84; PULSE 87; TEMP 98.4; BMI 21.4
[2020-05-10 03:47] LABS: PH,URINE 6.5 (5.0-8.0); URINE APPEARANCE CLEAR; URINE BILIRUBIN NEGATIVE (NEGATIVE); URINE COLOR YELLOW; URINE GLUCOSE (UA) NEGATIVE (NEGATIVE); URINE KETONE NEGATIVE (NEGATIVE); URINE LEUK ESTERASE NEGATIVE (NEGATIVE); URINE NITRITE NEGATIVE (NEGATIVE); URINE PROTEIN NEGATIVE (NEGATIVE); URINE UROBILINOGEN 0.2 mg/dL (0.2-1.0)
[2020-05-10 05:14] LABS: EPI CELLS 5 /uL (0-25.1); HYALINE CASTS 0 /uL (0-3.1); URINE BACTERIA 36 /uL (0-1359); URINE RBC 10 /uL (0-23.9); URINE WBC 8 /uL (0-25.8)
[2020-05-10] MEDS ORDERED: ACETAMINOPHEN 325 MG TABLET (FP) PO ONE (05:22)
== END 2020-05-10 06:36 | disposition home or self-care (01) ==
LOC: JER 23:40
DX: H92.09 Otalgia, unspecified ear (principal); R51.9 Headache, unspecified
CPT/HCPCS: 70450-TC; 72125-TC; 81003; 99284-25; C9803; U0003; U0005

== ENCOUNTER 2021-12-27 23:30 | Emergency (ER) | payer OTHER ==
[2021-12-28 00:06] VITALS: BP 122/79; PULSE 82; RESP 18; TEMP 98.2; BMI 24.7
[2021-12-28] MEDS ORDERED: ACETAMINOPHEN 500 MG TABLET (FP) PO ONE (01:31)
[2021-12-28] MEDS ORDERED: ACETAMINOPHEN 500 MG TABLET (FP) ONE (02:22)
[2021-12-28 02:33] LABS: BASO % 0.6 % (0-2.0); HEMATOCRIT 34.4 % (32.4-45.2); LYMPH % 28.2 % (8-40); MCHC 34.9 g/dl (32.0-36.0); MEAN CELL VOLUME 83.2 fl (80-96); MONO % 7.1 % (3.8-10.2); NEUT % 56.1 % (42.8-82.8); PLATELET COUNT 234 10^3/uL (134-434); RBC 4.13 M/mm3 (3.60-5.2); RDW 13.7 % (11.6-15.6)
[2021-12-28 02:55] LABS: ALBUMIN 3.4 g/dl (3.4-5.0); BLOOD UREA NITROGEN 5.5 mg/dL (7-18)
[2021-12-28 02:58] LABS: CREATININE 0.4 mg/dL (0.55-1.3)
[2021-12-28 02:59] LABS: BILIRUBIN,TOTAL 0.4 mg/dL (0.2-1); INR 1.07 (0.83-1.09); PROTHROMBIN TIME (PATIENT) 12.3 SEC (9.7-13.0); TOT PROT 7.2 g/dl (6.4-8.2)
[2021-12-28 03:05] LABS: EPI CELLS >36 /uL (0-25.1); HYALINE CASTS 3 /uL (0-3.1); PH,URINE 6.5 (5.0-8.0); URINE APPEARANCE CLOUDY; URINE BACTERIA 307 /uL (0-1359); URINE BILIRUBIN 1+ (NEGATIVE); URINE COLOR DK YELLOW; URINE GLUCOSE (UA) NEGATIVE (NEGATIVE); URINE KETONE TRACE (NEGATIVE); URINE LEUK ESTERASE TRACE (NEGATIVE); URINE NITRITE NEGATIVE (NEGATIVE); URINE PROTEIN TRACE (NEGATIVE); URINE WBC 55 /uL (0-25.8)
[2021-12-28] MEDS ORDERED: FAMOTIDINE 10 MG TABLET PO ONE (03:24)
[2021-12-28] MEDS ORDERED: MAG HYDROX/AL HYDROX/SIMETH 30 ML UNIT-DOSE CUP PO ONE (03:25)
[2021-12-28] MEDS ORDERED: FAMOTIDINE 20 MG TABLET ONE (03:42)
[2021-12-28] MEDS ORDERED: MAG HYDROX/AL HYDROX/SIMETH 30 ML UNIT-DOSE CUP ONE (03:43)
[2021-12-28] MEDS ORDERED: CEPHALEXIN MONOHYDRATE 500 MG CAPSULE (UD) PO ONE ×2 (04:52)
[2021-12-28] MEDS ORDERED: CEPHALEXIN MONOHYDRATE 500 MG CAPSULE (UD) ONE (04:54)
== END 2021-12-28 05:56 | disposition home or self-care (01) ==
LOC: JER 23:30
DX: R10.13 Epigastric pain (principal); N39.0 Urinary tract infection, site not specified
CPT/HCPCS: 36415; 76705-TC; 76801-TC; 80053; 81003; 83690; 84484; 84702; 85025; 85610; 99284-25

== ENCOUNTER 2022-06-26 07:00 | Inpatient (IN) | payer OTHER ==
[2022-06-26] MEDS: CLINDAMYCIN 900 MG PREMIX IVPB 900 MG/50 ML BAG IVPB SCH ×2 (07:15→16:10)
[2022-06-26] MEDS ORDERED: OXYTOCIN 30 UNITS in 0.9% NS 30 UNIT/500 ML INFUS.BAG IVPB ONE (07:52)
[2022-06-26] MEDS: OXYTOCIN 20 UNITS in 0.9% NS 20 UNIT/1,000 ML INFUS.BAG IV SCH ×2 (08:00→08:56)
[2022-06-26] MEDS ORDERED: BISACODYL 10 MG SUPP.RECT RC PRN (08:11)
[2022-06-26] MEDS ORDERED: BENZOCAINE 20% 57 GM BOTTLE TP PRN (08:11)
[2022-06-26] MEDS ORDERED: WITCH HAZEL 50% (TUCKS) 40 PAD/JAR PAD TP PRN (08:11)
[2022-06-26] MEDS ORDERED: oxyCODONE HCL 5 MG TABLET PO PRN (08:11)
[2022-06-26] MEDS ORDERED: METHYLERGONOVINE MALEATE 0.2 MG/1 ML AMP IM PRN (08:11)
[2022-06-26] MEDS ORDERED: ACETAMINOPHEN 325 MG TABLET (FP) PO PRN (08:11)
[2022-06-26] MEDS ORDERED: BENZOCAINE 28 GM HEMORRHOIDAL OINTMENT TP PRN (08:11)
[2022-06-26] MEDS ORDERED: ELECTROLYTE-148 SOLN 1,000 ML IV SCH (08:15)
[2022-06-26 08:34] VITALS: BMI 29.3
[2022-06-26] MEDS ORDERED: IBUPROFEN 600 MG TABLET (FP) PO ONE (08:46)
[2022-06-26] MEDS ORDERED: OXYTOCIN 20 UNITS in 0.9% NS 20 UNIT/1,000 ML INFUS.BAG IV ONE (08:53)
[2022-06-26] MEDS: IBUPROFEN 600 MG TABLET (FP) PO PRN ×2 (08:55→14:08)
[2022-06-26 08:57] LABS: CORD BASE EXCESS -5.6 mmol/L (0-2); CORD HCO3 19.7 mmHg (20-29); CORD PCO2 38.3 mmHg (30-78); CORD pH 7.33 (7.14-7.44)
[2022-06-26 09:00] LABS: CORD BASE EXCESS -4.6 mmol/L (0-2); CORD HCO3 19.9 mmHg (20-29); CORD PCO2 35.4 mmHg (30-78); CORD pH 7.368 (7.14-7.44)
[2022-06-26] MEDS ORDERED: TRANEXAMIC ACID 1000 MG/10 ML VIAL IVPUSH ONE (09:19)
[2022-06-26] MEDS ORDERED: LABETALOL HCL 200 MG TABLET (FP) PO ONE (09:20)
[2022-06-26] MEDS ORDERED: RHO(D) IMMUNE GLOBULIN 1,500 UNIT DISP.SYRIN IM ONE (09:31)
[2022-06-26] MEDS ORDERED: ACETAMINOPHEN 325 MG TABLET (FP) ONE (10:34)
[2022-06-26 10:54] LABS: BASO % 0.1 % (0-2.0); EOS % 0.9 % (0-4.5); HEMATOCRIT 35.5 % (32.4-45.2); HEMOGLOBIN 11.8 GM/dL (10.7-15.3); LYMPH % 7.4 % (8-40); MCH 28.4 pg (25.7-33.7); MCHC 33.2 g/dl (32.0-36.0); MEAN CELL VOLUME 85.5 fl (80-96); MEAN PLT VOLUME 9.3 fl (7.5-11.1); MONO % 6.6 % (3.8-10.2); PLATELET COUNT 188 10^3/uL (134-434); RBC 4.16 M/mm3 (3.60-5.2); RDW 15.7 % (11.6-15.6); WHITE BLOOD COUNT 12.2 K/mm3 (4.0-10.0)
[2022-06-26 11:01] LABS: INR 0.95 (0.83-1.09)
[2022-06-26 11:03] LABS: ACTIVATED PTT 25.7 SECONDS (25.2-36.5)
[2022-06-26 11:15] LABS: BLOOD UREA NITROGEN 9.5 mg/dL (7-18); CALCIUM 8.7 mg/dL (8.5-10.1)
[2022-06-26 11:18] LABS: CREATININE 0.5 mg/dL (0.55-1.3)
[2022-06-26] MEDS: PRENATAL VITAMINS W/ FOLIC ACID TABLET (FP) PO SCH (11:43)
[2022-06-26 12:03] LABS: SYPHILIS W/ RPR CONF NON-REACTIVE (NONREACTIVE)
[2022-06-26] MEDS: FERROUS SO4 325 MG TABLET (FP) PO SCH ×2 (12:13→16:55)
[2022-06-26 12:32] LABS: HIV INTERPRETATION NEGATIVE (NEGATIVE)
[2022-06-26 16:39] LABS: ALBUMIN 2.3 g/dl (3.4-5.0)
[2022-06-26 16:40] LABS: BILIRUBIN,DIRECT < 0.1 mg/dL (0.0-0.2); SGOT/AST 21 U/L (15-37)
[2022-06-26 16:42] LABS: SGPT/ALT 20 U/L (13-61)
[2022-06-26 16:44] LABS: BILIRUBIN,TOTAL 0.7 mg/dL (0.2-1); TOT PROT 5.4 g/dl (6.4-8.2)
[2022-06-26 16:45] LABS: ALK PHOS 111 U/L (45-117)
[2022-06-26 19:02] LABS: BASO % 0.2 % (0-2.0); EOS % 1.8 % (0-4.5); HEMATOCRIT 31.4 % (32.4-45.2); HEMOGLOBIN 10.7 GM/dL (10.7-15.3); LYMPH % 12.3 % (8-40); MCH 28.8 pg (25.7-33.7); MCHC 34.3 g/dl (32.0-36.0); MEAN CELL VOLUME 84.1 fl (80-96); MEAN PLT VOLUME 8.8 fl (7.5-11.1); MONO % 8.8 % (3.8-10.2); NEUT % 76.9 % (42.8-82.8); PLATELET COUNT 171 10^3/uL (134-434); RBC 3.73 M/mm3 (3.60-5.2); RDW 15.5 % (11.6-15.6); WHITE BLOOD COUNT 11.9 K/mm3 (4.0-10.0)
[2022-06-26 20:01] LABS: HEPATITIS B SURFACE AG MATERN NON-REACTIVE (NONREACTIVE)
[2022-06-27 08:37] LABS: BASO % 0.2 % (0-2.0); EOS % 3.5 % (0-4.5); HEMATOCRIT 34.1 % (32.4-45.2); HEMOGLOBIN 11.4 GM/dL (10.7-15.3); LYMPH % 17.8 % (8-40); MCH 28.8 pg (25.7-33.7); MCHC 33.6 g/dl (32.0-36.0); MEAN CELL VOLUME 85.8 fl (80-96); MEAN PLT VOLUME 8.8 fl (7.5-11.1); MONO % 8.7 % (3.8-10.2); NEUT % 69.8 % (42.8-82.8); PLATELET COUNT 193 10^3/uL (134-434); RBC 3.97 M/mm3 (3.60-5.2); RDW 15.9 % (11.6-15.6)
[2022-06-27] MEDS: IBUPROFEN 600 MG TABLET (FP) PO PRN (09:18)
[2022-06-27] MEDS: PRENATAL VITAMINS W/ FOLIC ACID TABLET (FP) PO SCH (09:19)
[2022-06-27] MEDS: FERROUS SO4 325 MG TABLET (FP) PO SCH ×3 (09:19→17:45)
[2022-06-27] MEDS ORDERED: diphenhydrAMINE HCL 25 MG CAPSULE (FP) PO PRN (09:44)
[2022-06-27] MEDS ORDERED: SENNOSIDES/DOCUSATE COMBO (SENNA PLUS) TABLET (UD) PO PRN (22:00)
[2022-06-28] MEDS: IBUPROFEN 600 MG TABLET (FP) PO PRN (06:09)
[2022-06-28] MEDS: FERROUS SO4 325 MG TABLET (FP) PO SCH ×2 (10:26→12:28)
[2022-06-28] MEDS: PRENATAL VITAMINS W/ FOLIC ACID TABLET (FP) PO SCH (10:26)
[2022-06-28 13:28] VITALS: BP 112/79; PULSE 92; RESP 16; TEMP 98.1
[2022-07-02 04:07] LABS: FIBROSIS SCORE. 0.01 (0.00-0.21); HCV ALPHA 2 MACRO CHART 173 mg/dL (110-276); NECRO.INFLAM ACT.SCORE 0.02 (0.00-0.17); NECROINFLAM. ACTIVITY GRADE A0-No activity (.)
== END 2022-06-28 14:00 | disposition home or self-care (01) | DRG 560 ==
LOC: JLDR 07:00 → J3W 11:15
PROVIDERS: ADMIT Obstetrics & Gynecology; ATTEND Obstetrics & Gynecology
PROC: 10E0XZZ Delivery of Products of Conception, External Approach (ICD-10-PCS; principal; 2022-06-26)
PROC: 0HQ9XZZ Repair Perineum Skin, External Approach (ICD-10-PCS; 2022-06-26)
PROC: 0W8NXZZ Division of Female Perineum, External Approach (ICD-10-PCS; 2022-06-26)
PROC: 3E0334Z Introduction of Serum, Toxoid and Vaccine into Peripheral Vein, Percutaneous Approach (ICD-10-PCS; 2022-06-26)
DX: O70.0 First degree perineal laceration during delivery (principal); O36.0930 Maternal care for other rhesus isoimmunization, third trimester, not applicable or unspecified; Z3A.39 39 weeks gestation of pregnancy; Z37.0 Single live birth
CPT/HCPCS: 36415; 36600; 80048; 80076; 82172; 82803; 82977; 83010; 83883; 84460; 85025; 85461; 85610; 85730; 86780; 86803; 86850; 86900; 86901; 86999; 87340; 87389; C9803-CS; J1561; U0003; U0005

== ENCOUNTER 2023-06-14 07:42 | Emergency (ER) | payer OTHER ==
[2023-06-14 07:55] VITALS: RESP 20; BMI 29.8
[2023-06-14 09:23] LABS: THROAT:GRP A STREP NOT DETECTED (NOTDETECTED)
[2023-06-14] MEDS ORDERED: FAMOTIDINE 20 MG TABLET ONE (09:56)
[2023-06-14] MEDS ORDERED: ALBUTEROL SO4 HFA INHALER IH ONE (09:56)
[2023-06-14] MEDS ORDERED: ONDANSETRON 4 MG TABLET PO ONE (09:56)
[2023-06-14] MEDS ORDERED: ACETAMINOPHEN 500 MG TABLET (FP) ONE (09:56)
[2023-06-14] MEDS: ALBUTEROL SO4 HFA INHALER IH ONE (09:59)
[2023-06-14] MEDS: ACETAMINOPHEN 500 MG TABLET (FP) PO ONE (09:59)
[2023-06-14] MEDS: ONDANSETRON 4 MG TABLET PO ONE (09:59)
[2023-06-14] MEDS: FAMOTIDINE 20 MG TABLET PO ONE (09:59)
[2023-06-14 11:57] VITALS: BP 106/70; PULSE 71; TEMP 97.6
== END 2023-06-14 12:15 | disposition home or self-care (01) ==
LOC: JER 07:42
DX: R06.02 Shortness of breath (principal); R07.89 Other chest pain; R11.2 Nausea with vomiting, unspecified; R19.7 Diarrhea, unspecified; R10.9 Unspecified abdominal pain; R21 Rash and other nonspecific skin eruption; R09.81 Nasal congestion; T78.1XXA Other adverse food reactions, not elsewhere classified, initial encounter; Z20.822 Contact with and (suspected) exposure to COVID-19
CPT/HCPCS: 0241U-QW; 87651; 99283-25